=== PATIENT | female | born 1945 | race Two or more races ===

== ENCOUNTER 2016-07-15 11:50 | Emergency (ER) | payer OTHER ==
--- NOTE | ~2016-07-15 | CR63 ---
[facility] A Service of [facility] & [facility] RADIOLOGY TEXT RESULTS PATIENT: ISMAEL JARRETT LOCATION: [facility] : 47 UNIT #: [id number] AGE: [address]: Niko Jennings MD SEX: F ORDER DR: [id number] [facility] [address] [place], [place] [address] [id number] E MR#: [id number] Acc #: [id number] NAME: ISMAEL JARRETT : 1945 SEX: F STUDY DATE/TIME: 07/15/2016 13:30 UNIT: [facility] ROOM: STUDY DESCRIPTION: CR Chest 2 View Attending Physician: Pierre Pablo D.O. Ordering Physician: Pierre Pablo D.O. Primary Care Physician: Kristal Not Listed MEDICAL IMAGING REPORT This report is preliminary unless electronic signature is present PLAN Two-view chest, 07/15/2016. HISTORY 70-year-old female with chest pain for 1 week. COMPARISON None FINDINGS 2 views of the chest demonstrate clear lungs. No pleural effusion or pneumothorax. Heart size is borderline. Mediastinum and pulmonary vasculature unremarkable. IMPRESSION No acute cardiopulmonary findings. Dictated by... Diallo Moya M.D. THIS IS AN ELECTRONICALLY VERIFIED REPORT Diallo Moya M.D. at 07/16/2016 8:58 AM SHEILA/nisha TD: 07/15/2016 14:01 JOB #: [id number] MEDICAL IMAGING REPORT Page 1 of 1 COPY
[2016-07-15 13:32] LABS: BASOPHIL% 0.3 % (0-2.5); EOSINOPHIL% 0.3 % (0.0-7.0); HEMATOCRIT 42.1 % (35.0-45.0); HEMOGLOBIN 13.6 gm/dL (12.0-16.0); LYMPHOCYTE% 18.5 % (17.0-45.0); MEAN CELL VOLUME 76.2 FL (83-96); MEAN CORPUSCULAR HEMOGLOBIN 24.6 PG (28-34); MEAN CORPUSCULAR HGB CONC 32.3 g/dL (30-36); MEAN PLATELET VOLUME 7.9 FL (6.5-11.5); MONOCYTE# 0.7 X10e3 (0-1.0); MONOCYTE% 6.9 % (3.0-12.0); NEUTROPHIL# 7.8 X10e3 (1.5-7.1); PLATELET COUNT 253 X10e3 (140-420); RED BLOOD COUNT 5.53 X10e (3.90-5.30); RED CELL DISTRIBUTION WIDTH 16.5 % (11.0-15.5); WHITE BLOOD COUNT 10.6 X10e3 (4.0-10.5)
[2016-07-15 13:36] LABS: DIFF IND NO
[2016-07-15 13:51] LABS: PARTIAL THROMBOPLASTIN TIME 33.2 SECONDS (23.5-31.3); PROTHROMBIN TIME (PATIENT) 10.3 SECONDS (9.6-11.5)
[2016-07-15 13:56] LABS: ALBUMIN SERUM 4.1 g/dL (3.5-5.0); BILIRUBIN, DIRECT 0.1 mg/dL (0.0-0.2); BILIRUBIN,INDIRECT 0.5 mg/dL (0.0-0.9); BILIRUBIN,TOTAL 0.6 mg/dL (0.2-2.0); CALCIUM SERUM 9.4 mg/dL (8.4-10.2); GLOM FILT RATE Estimated 57.9 mL/min (>60); POTASSIUM 4.3 mmol/L (3.5-5.1); PROTEIN TOTAL SERUM 7.3 g/dL (6.0-8.3)
[2016-07-15 14:11] LABS: POC - CKMB 2.7 ng/mL (0.0-7.9); POC - TROPONIN <0.05 ng/mL (<=0.05)
[2016-07-15 15:18] LABS: URINE SOURCE CLEAN CATCH
[2016-07-15 15:40] LABS: URINE APPEARANCE CLEAR; URINE BILIRUBIN NEG (NEG); URINE BLOOD NEG (NEG); URINE COLOR YELLOW; URINE GLUCOSE NEG (NEG); URINE KETONE NEG (NEG); URINE LEUKOCYTE ESTERASE NEG (NEG); URINE NITRATE NEG (NEG); URINE PROTEIN NEG (NEG); URINE SPECIFIC GRAVITY 1.016 (1.003-1.035); URINE UROBILINOGEN 0.2 MG/DL (NEG)
[2016-07-15 15:43] LABS: CULTURE INDICATED? NO
== END 2016-07-15 16:25 | disposition home or self-care (01) ==
LOC: CED 11:50
PROVIDERS: Emergency Medicine
DX: M54.6 Pain in thoracic spine (principal); I10 Essential (primary) hypertension
CPT/HCPCS: 36415; 71020; 80048; 80076; 81003; 82553; 84484; 85025; 85379; 85610; 85730; 96374; 99284; J1885

== ENCOUNTER → 2016-08-13 | Outpatient (CLI) | payer OTHER ==
--- NOTE | ~2016-08-13 | MY27 ---
[facility] A Service [facility] RADIOLOGY TEXT RESULTS PATIENT: ISMAEL JARRETT LOCATION: [facility] : 47 UNIT #: [id number] AGE: [address]: Paco Duggan MD SEX: F ORDER DR: [id number] [facility] [address] [place], [place] [address] [id number] O MR#: [id number] Acc #: [id number] NAME: ISMAEL JARRETT : 1945 SEX: F STUDY DATE/TIME: 08/13/2016 11:53 UNIT: [facility] ROOM: STUDY DESCRIPTION: MY THU SCREEN W/ CAD UNI LT Attending Physician: Paco Bennett M.D. Referring Physician: Paco Bennett M.D. Ordering Physician: Paco Bennett M.D. Primary Care Physician: Paco Bennett M.D. MEDICAL IMAGING REPORT This report is preliminary unless electronic signature is present EXAM Unilateral left digital screening mammogram, 08/13/2016, [facility]. HISTORY 70-year-old woman, status post right radical mastectomy 2007. Annual screening. COMPARISON Prior mammogram from [facility], date 08/17/2015. FINDINGS Digital imaging of the left breast was completed, utilizing 2-view protocol. Review includes FDA-approved CAD device. The breast parenchyma is heterogeneously dense with scattered parenchymal opacities stable. Small well-circumscribed nodule with calcification is stable. There is no interval occurring mass. There are no suspicious microcalcifications and no architectural deformity. IMPRESSION Stable benign unilateral left mammogram. Status post right mastectomy. Annual screening recommended. Patients over the age of 40 are entered into a reminder system with target due date for the next mammogram. A result letter will also be sent to the patient. BIRADS: 2 Benign finding. Dictated by... Luis Durham M.D. [facility] A Service [facility] RADIOLOGY TEXT RESULTS PATIENT: ISMAEL JARRETT LOCATION: [facility] : 47 UNIT #: [id number] AGE: [address]: Paco Duggan MD SEX: F ORDER DR: THIS IS AN ELECTRONICALLY VERIFIED REPORT Luis Durham M.D. at 08/15/2016 9:39 AM Shady TD: 08/14/2016 16:02 JOB #: [id number] MEDICAL IMAGING REPORT Page 1 of 1 COPY
== END | disposition home or self-care (01) ==
LOC: CWCC 11:15
DX: Z12.31 Encounter for screening mammogram for malignant neoplasm of breast (principal); Z90.11 Acquired absence of right breast and nipple
CPT/HCPCS: G0202

== ENCOUNTER → 2016-09-13 | Outpatient (CLI) | payer OTHER ==
--- NOTE | ~2016-09-13 | MR175 ---
[facility] A Service of [facility] & [facility] RADIOLOGY TEXT RESULTS PATIENT: ISMAEL JARRETT LOCATION: [facility] : 47 UNIT #: [id number] AGE: [address]: Paco Duggan MD SEX: F ORDER DR: [id number] [facility] [address] [place], [place] [address] [id number] O MR#: [id number] Acc #: [id number] NAME: ISMAEL JARRETT : 1945 SEX: F STUDY DATE/TIME: 09/13/2016 13:42 UNIT: [facility] ROOM: STUDY DESCRIPTION: MR Thoracic WWo Contrast Attending Physician: Paco Bennett M.D. Referring Physician: Paco Bennett M.D. Ordering Physician: Paco Bennett M.D. Primary Care Physician: Paco Bennett M.D. MRI CENTER REPORT This report is preliminary unless electronic signature is present. EXAM MRI of the thoracic spine with and without contrast dated 09/13/2016. COMPARISON Thoracic spine series dated 07/11/2016. HISTORY Mid-back pain for 3 months. Breast cancer with mastectomy in 2007. No recurrence till now. FINDINGS Multisequence multiplanar imaging of the thoracic spine was obtained with and without contrast. 18 mL of MultiHance was administered intravenously. GFR measured greater than 60. The study was given to me for dictation on 09/17/16. There is compression of T6 vertebral body measuring 45%-50% height loss. There is retropulsion of fragments into the canal. Soft tissue is noted in the epidural space with cord compression. Faint increased T2 signal within the cord cannot be completely excluded based on the sagittal T2-weighted (series 5, image 8). It is not well correlated in all the sequences to confirm significant edema. The lesion extends into the pedicles, particularly in the right side and the adjacent superior and inferior right articulating process. There is narrowing of the right T5-6 and T6-7 neural foramina and to a lesser degree in the left neural foramina. There is also decreased T1 signal noted in the associated nearby right 6 and right 7 ribs with enhancement. It could be related to edema or tumor. There is decreased T1 and increased T2 signal noted within the right lateral aspect of the T5 vertebral body with enhancement. Associated increased DWI signal is seen. There is mild decreased T1 signal noted within the bilateral pedicles of T7 and in the right pedicle of T8, with latter extending towards the inferior right articulating process. 6.5 mm decreased T1 and increased T2-signal lesion is noted in STS. [facility] A Service of [facility] RADIOLOGY TEXT RESULTS PATIENT: ISMAEL JARRETT LOCATION: [facility] : 47 UNIT #: [id number] AGE: [address]: Paco Duggan MD SEX: F ORDER DR: the right posterolateral and inferior aspect of T10 vertebral body and 5.5 mm T10 spinous process lesion in the sagittal sequence (not included in the axials due to slice selection) with mild edema are seen. They are suspicious for metastasis. There is also another lesion noted above it in T10 vertebral body with decreased T1 signal but with no edema. It is probably not a metastasis given the lack of edema or increased diffusion weighted signal. There is a less than 1 cm small mid to left paramidline vertebral body lesion close to the inferior endplate of T12, suggestive of metastasis. Focal edema containing 7.5 mm lesion is in the right lateral aspect of T9 vertebral body with fatty T1 signal most suggestive of an atypical hemangioma. Along the inferior body of T12 abutting the end plate in the mid to left paramidline aspect there is a 6.5 mm lesion with increased DWI signal change, favoring another metastatic focus. Nonenhancing multiple cystic lesions are noted in bilateral neural foramina, most suggestive of perineural cysts. T1-2: Mild disc bulge with small central protrusion. No significant canal stenosis or neural foraminal narrowing. T2-3: Small left subarticular protrusion with minimal mass effect on the adjacent thecal sac. No cord compression. T3-4: Tiny central protrusion but otherwise unremarkable. T4-5, T5-6: Minimal degenerative disc and facet changes. T6-7: Moderate to severe bilateral facet hypertrophic changes. Disc osteophyte complex with small central protrusion. There is severe cord compression at the level of T6 as described with extension to both the T5-6 and T6-7 levels. T6-7: Significant changes as described above involving the T6 pathological fracture, epidural lesions and cord compression. It extends to this level. T7-8 to T10-11: Unremarkable. T11-12: Mild disc bulge with small left foraminal to extraforaminal broad-based protrusion with mild inferior left neural foraminal narrowing. No significant canal stenosis. T12-L1: Mild disc bulge with tiny central protrusion. No significant neural foraminal narrowing. L1-2: Mild concentric disc bulge with minimal mass effect on the adjacent thecal sac. Mild bilateral facet changes are seen. IMPRESSION 1. Significantly abnormal study. [facility] A Service of [facility] RADIOLOGY TEXT RESULTS PATIENT: ISMAEL JARRETT LOCATION: [facility] : 47 UNIT #: [id number] AGE: [address]: Paco Duggan MD SEX: F ORDER DR: 2. T6 Vertebral body height loss is noted with the remaining height of only 45%-50%. There is retropulsion into the canal along with abnormal soft tissue in the epidural space around the thecal sac, predominately in the anterior and right lateral aspects. There is severe cord compression with suspicious minimal cord edema. Neural foraminal narrowing involving the right T5-6 and T6-7 levels are noted. To a lesser degree it is also seen involving the left T6-7 neural foramen. These are most consistent with metastasis. 3. There are lesions noted in bilateral T7, right T8 pedicle with some extension into the right and T8 superior and inferior articulating process. Lesion with increased DWI signal is also seen in the T12 vertebral body (6.5 mm), T10 vertebral body (6.5 mm) and T10 spinous process. These are also suspicious for metastatic disease. 4. There is a 7.5 mm fatty signal lesion with edema noted at T9 vertebral body, likely an atypical hemangioma. 5. There is a decreased T1 signal lesion noted in the right lateral aspect of T10 vertebral body above the previously mentioned lesion at T10. This is also noted in the right paramidline aspect but it has no associated edema or increased DWI signal to confirm metastatic focus. Nonspecific but probably benign. 6. Refer above for detailed description. 7. Degenerative changes are noted at multiple levels of the thoracic spine as described above. Findings of cord compression were discussed with Dr. Art at 3:10 p.m. on 09/17/2016. STAT * RESULT Dictated by... Socorro Martin M.D. THIS IS AN ELECTRONICALLY VERIFIED REPORT Socorro Martin M.D. at 09/17/2016 4:35 PM ERYN/kathy TD: 09/17/2016 15:49 JOB #: [id number] MRI CENTER REPORT Page 1 of 1 COPY
[2016-09-13 14:26] LABS: POC - CREATININE 0.74 mg/dL (0.44-1.03); POC - GFR >60.0 mL/min (>60)
== END | disposition home or self-care (01) ==
LOC: CMRI 12:08
PROVIDERS: Family Medicine
DX: M54.6 Pain in thoracic spine (principal); G95.29 Other cord compression; M47.894 Other spondylosis, thoracic region; M99.82 Other biomechanical lesions of thoracic region; G95.9 Disease of spinal cord, unspecified
CPT/HCPCS: 72157; 82565; A9577

== ENCOUNTER → 2016-10-08 | Outpatient (CLI) | payer OTHER ==
--- NOTE | ~2016-10-08 | CT2 ---
[facility] A Service of [facility] & [facility] RADIOLOGY TEXT RESULTS PATIENT: ISMAEL JARRETT [facility] : 47 UNIT #: [id number] AGE: [address]: Julio Art MD SEX: F ORDER DR: [id number] [facility] [address] [place], [place] [address] [id number] O MR#: [id number] Acc #: [id number] NAME: ISMAEL JARRETT : 1945 SEX: F STUDY DATE/TIME: 10/08/2016 10:29 UNIT: [facility] ROOM: STUDY DESCRIPTION: CT Abd and Pelv W Cont Attending Physician: Julio Art M.D., Ph.D. Referring Physician: Julio Art M.D., Ph.D. Ordering Physician: Julio Art M.D., Ph.D. Primary Care Physician: Paco Bennett M.D. MEDICAL IMAGING REPORT This report is preliminary unless electronic signature is present EXAMINATION CT abdomen and pelvis with contrast DATE 10/08/2016 HISTORY 70-year-old female diagnosed with breast cancer in 2007 with a right mastectomy. Last chemotherapy and radiation therapy treatments in 2007. Observation for metastatic disease. Restaging. Bloating for several years. COMPARISON No prior CT abdomen and pelvis of this institution for comparison. There is no documentation of outside CT imaging per patient history sheet. PROCEDURE 5 mL axial images from the lung bases through lesser trochanters after intravenous contrast administration. Enteric contrast not administered. Sagittal and coronal reformed images were obtained. This CT exam was performed with one or more of the following radiation dose reduction techniques: automatic exposure control, adjustment of mA and/or kV according to patient size, and iterative reconstruction. ABDOMEN FINDINGS: Liver is enlarged measuring 22.8 inches craniocaudal and diffusely steatotic. No focal liver lesions are identified. The gallbladder, spleen, pancreas, adrenals and kidneys are within normal limits. No retroperitoneal or mesenteric adenopathy is seen and there is no ascites. The appendix is normal. Unopacified bowel appears grossly nonthickened, nondilated, noninflamed. PELVIS FINDINGS: Urinary bladder, uterus and rectum are normal. No pathologically enlarged pelvic adenopathy or free fluid is identified. [facility] A Service of [facility] RADIOLOGY TEXT RESULTS PATIENT: ISMAEL JARRETT LOCATION: [facility] : 47 UNIT #: [id number] AGE: [address]: Julio Art MD SEX: F ORDER DR: Questionable 1.6 cm lucent lesion in the L3 vertebral body worrisome for osseous metastatic disease. There is also an adjacent benign-appearing Schmorl node protrusion in the inferior endplate of L3. Advanced facet arthropathy is present at L4-L5 and at L5-S1. IMPRESSION 1. Questionable osseous metastatic lesion in the L3 vertebral body. No pathologic fracture is seen and no additional osseous lesions are appreciated within the abdomen and pelvis. Whole-body bone scan may prove helpful for further evaluation. 2. No evidence of metastatic disease within the abdominal or pelvic cavities proper. 3. Hepatomegaly with diffuse hepatic steatosis. 4. CT chest performed on this same day has been dictated separately. Please refer to that report for additional pertinent findings. Dictated by... Radha Flaherty M.D. THIS IS AN ELECTRONICALLY VERIFIED REPORT Radha Flaherty M.D. at 10/10/2016 8:43 AM TUCKER/erica TD: 10/09/2016 13:28 JOB #: [id number] MEDICAL IMAGING REPORT Page 1 of 1 COPY
--- NOTE | ~2016-10-08 | CT55 ---
[facility] A Service of [facility] & [facility] RADIOLOGY TEXT RESULTS PATIENT: ISMAEL JARRETT LOCATION: [facility] : 47 UNIT #: [id number] AGE: [address]: Julio Art MD SEX: F ORDER DR: [id number] [facility] [address] [place], [place] [address] [id number] O MR#: [id number] Acc #: [id number] NAME: ISMAEL JARRETT : 1945 SEX: F STUDY DATE/TIME: 10/08/2016 10:29 UNIT: [facility] ROOM: STUDY DESCRIPTION: CT Chest W Con Attending Physician: Julio Art M.D., Ph.D. Referring Physician: Julio Art M.D., Ph.D. Ordering Physician: Julio Art M.D., Ph.D. Primary Care Physician: Paco Bennett M.D. MEDICAL IMAGING REPORT This report is preliminary unless electronic signature is present EXAM CT chest with contrast, 10/08/2016 HISTORY History of metastatic breast cancer. Observation for metastatic disease. Restaging. History of chemotherapy and radiation therapy completed in 2007. Patient states bloating for several years. Right mastectomy. COMPARISON PA and lateral chest radiograph 07/15/2016. There is no prior CT chest at this institution for comparison. Location of any outside studies is not given on the patient's history sheet. MRI thoracic spine without and with contrast 09/13/2016. PROCEDURE 5.0 mm axial images through the chest after intravenous contrast administration. Sagittal and coronal reformatted images were obtained. This CT exam was performed with one or more of the following radiation dose reduction techniques: automatic exposure control, adjustment of mA and/or kV according to patient size, and iterative reconstruction. FINDINGS Right mastectomy changes are noted. There is a heterogeneous 1.9 cm right thyroid nodule. There is a mildly prominent lymph node in the posterior mediastinum adjacent to the lower thoracic esophagus on the right, and this node measures 1.1 cm. No additional adenopathy is identified. There is no pericardial effusion or pleural effusion. Lungs are free of acute airspace disease. No suspicious pulmonary nodules STS. [facility] A Service of [facility] & [facility] RADIOLOGY TEXT RESULTS PATIENT: ISMAEL JARRETT [id number] 47 UNIT #: [id number] AGE: [address]: Julio Art MD SEX: F ORDER DR: are identified. Extensive osteolytic - osteoblastic metastatic change is demonstrated within the T6 vertebral body with about 4.0 mm bony retropulsion, chronic-appearing compression fracture, and focal kyphosis. Lucent foci are also demonstrated within the T5 and T12 vertebral bodies, and the right T8 pedicle consistent with metastatic disease. Other metastatic lesions are demonstrated to better advantage on the recent MRI thoracic spine. IMPRESSION 1. Osseous metastatic disease within the thoracic spine, greatest at T6, with smaller foci also demonstrated at T5, T8 and T12. Additional thoracic spine metastatic disease is demonstrated to better advantage on the MRI thoracic spine from 09/13/2016. 2. There is a pathologic compression fracture of T6 with focal kyphosis and 4.0 mm bony retropulsion. These findings have been described on previous MRI. 3. No suspicious pulmonary nodules. 4. There is one mildly prominent lymph node in the posterior mediastinum adjacent to the distal thoracic esophagus measuring 1.1 cm. It is indeterminate. Correlation with outside CT chest is recommended, if available. There is no prior CT chest at this institution. 5. Heterogeneous 1.9 cm right thyroid nodule. Again, correlation with outside studies would be recommended, if available, to document the stability of this finding. Alternately, thyroid ultrasound may prove helpful for further evaluation. 6. Right mastectomy. 7. CT abdomen and pelvis performed this same day has been dictated separately. Dictated by... Radha Flaherty M.D. THIS IS AN ELECTRONICALLY VERIFIED REPORT Radha Flaherty M.D. at 10/10/2016 8:43 AM Nii TD: 10/09/2016 13:24 JOB #: [id number] MEDICAL IMAGING REPORT Page 1 of 1 COPY
[2016-10-08 11:31] LABS: POC - GFR >60.0 mL/min (>60)
== END | disposition home or self-care (01) ==
LOC: CCAT 09:26
PROVIDERS: Internal Medicine Hematology & Oncology
DX: C79.51 Secondary malignant neoplasm of bone (principal); K76.0 Fatty (change of) liver, not elsewhere classified; R16.0 Hepatomegaly, not elsewhere classified; M84.48XD Pathological fracture, other site, subsequent encounter for fracture with routine healing; E04.1 Nontoxic single thyroid nodule; Z90.11 Acquired absence of right breast and nipple; Z85.3 Personal history of malignant neoplasm of breast
CPT/HCPCS: 71260; 74177; 82565; Q9967